=== PATIENT | female | born 1990 | race Caucasian/White ===

== ENCOUNTER 2024-04-07 14:24 | Outpatient (CLI) | payer BC, SELFPAY ==
--- NOTE | 2024-04-07 14:37 | MR_ITS ---
WS: [id number] MRI HEAD WITH CONTRAST TECHNIQUE: Sagittal T1, T2 axial, T2 axial FLAIR, axial susceptibility weighted imaging, axial diffus ion weighted images, and coronal T2 images were obtained. Pre and post-T1 axial and post T1 coronal i mages. ADC and FSPGR images. CLINICAL INFORMATION: MIGRAINE WITH AURA COMPARISON: None. FINDINGS: No evidence of restricted diffusion to suggest acute ischemia. Ventricular system and basal cisterns are patent. Enhancing T2 hyperintense lesion involving the LEFT frontal horn measuring 6.3 mm. This l esion also demonstrates T1 hypointensity. No significant thinning of the corpus callosum.No other delaney picious intracranial lesions. Findings suspicious for demyelinating disease with single active demyel inating lesion. Normal posterior fossa. Normal vascular flow voids at the skull base. No extra-axial fluid collection s. No evidence of mass or mass effect. Normal optic chiasm and pituitary infundibulum. Temporal lobes and hippocampal formations are normal in appearance. Paranasal sinuses and mastoid air cells are well aerated. Mild cerebellar tonsillar ectopia. Normal f ourth ventricle. No hydrocephalus. MR/MR head wo/w con [id number] IMPRESSION: Findings suspicious for demyelinating disease. Recommend neurology consultation . Recommend follow-up cervical and thoracic spine MRI without and with gadolini um to assess for additional demyelinating lesions. Also note patient indicates blurred vision which can be seen with optic neuriti s associated demyelinating disease. MRI of the orbits without and with gadolini um enhancement with fat saturation technique could be performed for detailed ev aluation of the optic nerves if indicated
[2024-04-07] MEDS: gadobenate dimeglumine 20 mL vial 10 ML IV (15:02)
== END 2024-04-07 14:25 | disposition home or self-care (01) ==
PROVIDERS: Visit Provider Family Medicine
DX: G43.109 Migraine with aura, not intractable, without status migrainosus (principal)
CPT/HCPCS: 70553; A9577

== ENCOUNTER 2024-06-15 12:15 | Outpatient (CLI) | payer BC, MEDICAID, SELFPAY ==
--- NOTE | 2024-06-15 12:23 | MR_ITS ---
WS: [id number] MR CERVICAL SPINE WO/W COMPARISON: MRI head 04/07/2024. HISTORY: MS TECHNIQUE: Sagittal T1, T2 and T2 inversion recovery; axial T2, T2 gradient and fiesta. Post gadolini um imaging with fat saturation technique. FINDINGS:Straightening of the normal cervical lordosis. No high grade central canal narrowing. Cord s ignal is normal. No visualized demyelinating lesions in the cervical cord. No enhancing lesions. No s ignificant cord atrophy. C2-3: Spinal canal and foramen are patent. C3-4: Spinal canal and foramen are patent. C4-5: Mild facet arthropathy. Spinal canal and foramen are patent. C5-6: Mild facet arthropathy. Minimal disc bulging with endplate ridging. Mild LEFT and no significan t RIGHT foraminal narrowing. C6-7: Mild endplate ridging. Spinal canal and foramen are patent. C7-T1: Mild endplate ridging. Mild LEFT and no significant RIGHT foraminal narrowing. Spinal canal is patent. MR/MR cervical spine wo/w [id number] IMPRESSION: 1. No demyelinating lesions in the cervical cord. Cord signal is normal. 2. No significant cord atrophy. 3. No significant spinal canal or central canal stenosis. 4. Mild facet arthropathy in the mid cervical spine described above.
--- NOTE | 2024-06-15 12:23 | MR_ITS ---
WS: [id number] MRI THORACIC SPINE WITH CONTRAST TECHNIQUE: Sagittal T1, T2 and STIR imaging. Axial T2 imaging. Post gadolinium imaging was obtained. CLINICAL INFORMATION: MS COMPARISON: None. FINDINGS: Mild thoracic curve. No acute compression. No high-grade central canal stenosis. No suspicious lesion s within the thoracic cord. No visualized demyelinating lesions. No cord atrophy. No abnormal gadolin ium enhancement. Normal CSF flow voids in the dorsal canal. No abnormal gadolinium enhancement. Mild facet arthropathy lower thoracic spine. Normal caliber thora cic aorta. Mild disc bulging at T7-T8. MR/MR thoracic spine wo/w [id number] IMPRESSION: 1. No demyelinating lesions within the thoracic cord. 2. No abnormal gadolinium enhancement. No cord atrophy. 3. Mild disc bulging at T7-T8.
[2024-06-15] MEDS: gadobenate dimeglumine 20 mL vial IV (13:03)
== END 2024-06-15 12:19 | disposition home or self-care (01) ==
PROVIDERS: PCP Electrodiagnostic Medicine; Visit Provider Electrodiagnostic Medicine
DX: G37.9 Demyelinating disease of central nervous system, unspecified (principal)
CPT/HCPCS: 72156; 72157